=== PATIENT | female | born 1995 | race African-American/Black ===

== ENCOUNTER 2023-12-27 08:35 | Emergency (ER) | payer BC, SELFPAY ==
[2023-12-27 09:51] LABS: Influenza A by NAA Not Detected (NotDetected); Influenza B by NAA Not Detected (NotDetected); SARS-CoV-2 NAA Rapid Test Not Detected (NotDetected)
[2023-12-27] MEDS ORDERED: Ketorolac Tromethamine 30 MG (1 mL) VIAL ONE (09:54)
[2023-12-27] MEDS ORDERED: Dexamethasone 10 MG/ML VIAL ONE (09:54)
[2023-12-27] MEDS ORDERED: Acetaminophen 500 MG TAB ONE (09:54)
== END 2023-12-27 12:03 | disposition home or self-care (01) ==
LOC: ERS 08:35
DX: J02.0 Streptococcal pharyngitis (principal)
CPT/HCPCS: 71045; 87430; 93005; 96372; J1100; J1885